=== PATIENT | male | born 1945 | race Caucasian/White ===

== ENCOUNTER 2025-06-29 15:05 | Observation (INO) ==
[2025-06-29 15:25] LABS: MEAN PLATELET VOLUME 9.0 fL (7.4-11.0); RED CELL DISTRIBUTION WIDTH 13.8 % (11.6-16.5)
[2025-06-29] MEDS: NS 1,000 ML IV 1,000 ML IV ONE (15:36)
[2025-06-29 15:38] LABS: COR NA(FOR HYPERGLY) 140 mmol/L (136-145); CREATININE 1.07 mg/dL (0.70-1.30); eGFR NON BLACK RACES > 60 (>60)
[2025-06-29 15:44] LABS: BAND NEUTROPHILS % 4 % (0-10); PLATELET MORPHOLOGY COMMENT NORMAL (NORMAL)
[2025-06-29] MEDS ORDERED: OMNIPAQUE 350 mg/mL 100 mL BTL 100 ML ONE (15:53)
--- NOTE | 2025-06-29 17:15 | DR.N/VMALE ---
HPI Time Seen Time Seen by Provider: 06/29/25 16:56 Primary Care Physician Primary Care Physician: carlos funez HPI Comment HPI Comment: According to pt he had umbilical hernia surgery and was discharged yesterday. Was doing better. However experienced nausea and vomiting with constipation .Pt took Metamucil helped but cont. to experience nausea. Had also noted dark stools , here to have himself checked Complaints Chief Complaint Doctors Comments: nausea and vomiting Chief Complaint:: Patient states he recently had hernia sx day was discharged yesterday he has been bloated and hasnt had a bowel movement in a couple days so he took some laxatives started having black diarrhea along with nausea and vomiting. Patient denies any abd pain at this time. COVID-19 Coronavirus risk:travel/contact w/high risk person: No Has patient experienced Coronavirus symptoms: No Reviewed Nurses Notes Reviewed: Yes Source History Provided: Patient Mode of Arrival Mode of Arrival: Ambulatory Timing Onset of Chief Complaint: 06/29/25 Context Onset: Spontaneous History of: Abdominal Operation Quality Quality: Bilious PMH PMH Past Medical History: Yes Past Medical History: Dyslipidemia Past Surgical History: Yes Surgical History: Ortho Surgery Past Surgical History Comment: hernia sx, bruce knee, neck Family History History of Family Medical Conditions: No Social History Does patient currently use any type of tobacco product: No Have you used tobacco products in the last 12 months: No Type of Tobacco Use: None Does any household member use tobacco: No Alcohol Use: None Do you use any recreational Drugs:: No Lives With: Family Lives Where: Home Travel Risk Coronavirus risk:travel/contact w/high risk person: No Has patient experienced Coronavirus symptoms: No Infectious screening In the last 2 months have you had wt loss of >10#?: NO Have you had fever, night sweats or hemotysis?: No Have you traveled outside the country in the last 6 months?: No Isolation: Standard ROS Review of Systems Eyes: No Symptoms Reported ENTM: No Symptoms Reported Respiratoy: No Symptoms Reported Cardiovascular: No Symptoms Reported Gastrointestinal/Abdominal: Constipation, Nausea and Vomiting Genitourinary: No Symptoms Reported Neurological: No Symptoms Reported Musculoskeletal: No Symptoms Reported Integumentary: No Symptoms Reported PE Vital Signs Vitals: Vital Signs Temperature 98.1 F Pulse Rate [Bilateral Radial] 97 Pulse Rate [Bilateral Radial] 105 Pulse Rate 112 Respiratory Rate 16 Blood Pressure [Left Arm] 137/84 Blood Pressure [Left Arm] 130/91 Blood Pressure 130/74 O2 Sat by Pulse Oximetry 95 O2 Sat by Pulse Oximetry 95 O2 Sat by Pulse Oximetry 92 General Limitations: No Limitations General Appearance: Alert and In No Apparent Distress Head Head Exam: Normal Inspection, Atraumatic and Normocephalic Eyes Eye exam: Normal Appearance, PERRL and EOMI ENT ENT Exam: Mucous Membranes Moist Neck Neck Exam: Normal Inspection, Full ROM and Trachea Midline Chest Chest Inspection: Normal Inspection and Symmetric Chest Wall Rise Respiratory Respiratory Exam: Normal Lung Sounds Bilat Respiratory Exam: Bilateral: Clear to Auscultation Cardiovascular Cardiovascular Exam: +S1 and +S2 Abdominal Exam Abdominal Exam: Soft, Distention, Hypoactive Bowel Sounds and Other (bruising from the surgery ,no guarding or rebound ) Back Back Exam: Normal Inspection Skin Skin Exam: Normal Color MDM Additional Information Obtained Additional Information Obtained From: Old Records Differential Diagnosis Differential Diagnosis: Considerations may Include:: Bowel Obstruction Differential Diagnosis Comment: abdominal abscess COURSE Treatment Treatment: labs ,ct abdomen /pelvis pelvis,IV fluids ,hemocult ROR Labs Reviewed Laboratory Results Reviewed?: Yes 06/29/25 15:19 06/29/25 15:19 Laboratory: WBC 16.4 X10^3/uL (3.6-10.0) H 06/29/25 15:19 RBC 5.90 X10^6/uL (4.7-6.0) 06/29/25 15:19 Hgb 17.7 g/dL (13.5-18.0) 06/29/25 15:19 Hct 52.1 % (42.0-54.0) 06/29/25 15:19 MCV 88.3 fL (80.0-100.0) 06/29/25 15:19 MCH 30.0 pg (27.0-34.0) 06/29/25 15:19 MCHC 34.0 g/dL (33.0-35.0) 06/29/25 15:19 RDW 13.8 % (11.6-16.5) 06/29/25 15:19 Plt Count 149 X10^3/uL (150.0-450.0) L 06/29/25 15:19 Plt Count Comment Adequate (ADEQUATE) 06/29/25 15:19 MPV 9.0 fL (7.4-11.0) 06/29/25 15:19 Neut % (Auto) 88.2 % (42.0-75.0) H 06/29/25 15:19 Lymph % (Auto) 5.2 % (21.0-51.0) L 06/29/25 15:19 [place] % (Auto) 4.8 % (0.0-13.0) 06/29/25 15:19 Eos % (Auto) 0.7 % (0.9-2.9) L 06/29/25 15:19 Baso % (Auto) 1.1 % (0.2-1.0) H 06/29/25 15:19 Neut # (Auto) 14.5 x10^3/uL (2.2-4.8) H 06/29/25 15:19 Lymph # (Auto) 0.9 X10^3/uL (1.3-2.9) L 06/29/25 15:19 [place] # (Auto) 0.8 x10^3/uL (0.3-0.8) 06/29/25 15:19 Eos # (Auto) 0.1 x10^3/uL (0.0-0.2) 06/29/25 15:19 Baso # (Auto) 0.2 X10^3/uL (0.0-0.1) H 06/29/25 15:19 Absolute Nucleated RBC 0.1 /100WBC 06/29/25 15:19 Total Counted 100 06/29/25 15:19 Neutrophils % (Manual) 89 % (39-76) H 06/29/25 15:19 Band Neutrophils % 4 % (0-10) 06/29/25 15:19 Lymphocytes % (Manual) 5 % (13-43) L 06/29/25 15:19 Monocytes % (Manual) 2 % (4-9) L 06/29/25 15:19 Plt Morphology Comment Normal (NORMAL) 06/29/25 15:19 RBC Morphology Normal (NORMAL) 06/29/25 15:19 Sodium 139 mmol/L (136-145) 06/29/25 15:19 Corrected Sodium 140 mmol/L (136-145) 06/29/25 15:19 Potassium 4.1 mmol/L (3.5-5.1) 06/29/25 15:19 Chloride 101 mmol/L (98-107) 06/29/25 15:19 Carbon Dioxide 32.0 mmol/L (21-32) 06/29/25 15:19 BUN 17 mg/dL (7-18) 06/29/25 15:19 Creatinine 1.07 mg/dL (0.70-1.30) 06/29/25 15:19 Est GFR (MDRD) Af Amer > 60 (>60) 06/29/25 15:19 Est GFR (MDRD) Non-Af > 60 (>60) 06/29/25 15:19 Glucose 140 mg/dL (65-99) H 06/29/25 15:19 Lactic Acid 1.1 mmol/L (0.4-2.0) 06/29/25 16:00 Calcium 8.7 mg/dL (8.5-10.1) 06/29/25 15:19 Corrected Calcium TNP 06/29/25 15:19 Total Bilirubin 0.80 mg/dL (0.2-1.0) 06/29/25 15:19 AST 30 Units/L (15-37) 06/29/25 15:19 ALT 21 Units/L (12-78) 06/29/25 15:19 Alkaline Phosphatase 89 Units/L (46-116) 06/29/25 15:19 Total Protein 8.2 g/dL (6.4-8.2) 06/29/25 15:19 Albumin 4.0 g/dL (3.4-5.0) 06/29/25 15:19 Globulin 4.2 g/dL (2.5-4.5) 06/29/25 15:19 Albumin/Globulin Ratio 1.0 Ratio (1.1-2.1) L 06/29/25 15:19 Amylase 45 Units/L (25-115) 06/29/25 15:19 Lipase 18 Units/L (16-77) 06/29/25 15:19 Stool Occult Blood Positive (NEGATIVE) A 06/29/25 15:43 Opioid Opioid Risk Tool Age (Alfredito box if 16-45): No History of Preadolescent Sexual Abuse: No Total: 0 Total Score Risk Category: Low Risk Copyright: Hunter BRISENO predicting aberrant behaviors Discharge Plan Diagnosis Discharge Problem: Nausea and vomiting in adult patient, Postoperative ileus, Leukocytosis Discharge Plan Patient Disposition: ADMITTED INPATIENT Condition: Stable Prescriptions: Continued simvastatin 40 mg tablet 40 mg PO QPM tamsulosin 0.4 mg capsule 0.4 mg PO DAILY Discontinued donepezil 5 mg tablet 5 mg PO QDAY meloxicam 15 mg tablet 15 mg PO QDAY oxycodone-acetaminophen 5-325 mg tablet 1 tab PO Q6H PRN pantoprazole 40 mg tablet,delayed release (DR/EC) 40 mg PO BID testosterone cypionate 200 mg/mL oil 200 mg IM MONTHLY cyclobenzaprine 5 mg tablet 5 mg PO QPM PRN isotretinoin 30 mg capsule 30 mg PO QDAY levocetirizine 5 mg tablet 5 mg PO QDAY Health Concerns: Post Hospitalization: new medications and changes needed to prevent readmission or further decline. Pt educated and given instructions on all concerns. Plan of Treatment: Continue with present treatment and follow up plan. Pt is to keep follow up appointment as instructed and take medications as ordered. Orders to Discharge Patient Discharge Orders: Transfer (Routine); Ordered 06/29/25 Ordered By: Jeovanny Cody Follow ups/Referrals Follow ups/Referrals: [facility],None [Primary Care Provider] - 3 days Instructions Stand Alone Forms: Find Help Web Site, Post Hospital Follow Up Care Print Language: VIET[place]ESE ADDITIONAL NOTES Additional Notes Additional Notes: spoke with Dr. Galvan. Discussed patient labs and ct scan. agreed to have patient admitted for post op ileus, leukocytosis
--- NOTE | 2025-06-29 18:19 | CT ---
EXAM: CT ABDOMEN AND PELVIS WITH INTRAVENOUS CONTRAST HISTORY: Previous hernia surgery x 2 days. Nausea and vomiting. Diarrhea. TECHNIQUE: Spiral axial CT images are obtained through the abdomen and pelvis without the administration of oral contrast and with the administration of intravenous contrast. Additional coronal and sagittal reformatted images are reconstructed. COMPARISON: None available. FINDINGS: ABDOMINAL AND PELVIC WALL: There is an approximately 7.5 cm CC by 4.7 cm transverse by by 3.8 cm AP complex air and fluid collection seen in the periumbilical anterior abdominal wall fascial, with extensive surrounding subcutaneous soft tissue edema/swelling/induration; DDx includes recent postsurgical change with hemorrhagic periumbilical fluid and/or superinfection with periumbilical phlegmon and developing multifocal abscess with surrounding subcutaneous soft tissue cellulitis in the appropriate clinical setting. Clinical correlation is advised. GASTROINTESTINAL TRACT: There is a mildly dilated fluid-filled stomach, and up to 3.7 cm dilated fluid-filled small bowel loops in the anterior abdomen and pelvis, and up to 9.2 cm dilated cecum and ascending colon, consistent with postoperative ileus. There is colonic diverticulosis, especially severe in the sigmoid region, without CT evidence for acute diverticulitis. No evidence for bowel herniation, bowel obstruction, or colitis. A normal-appearing appendix is seen. GENITOURINARY SYSTEM: The kidneys are unremarkable. There is no ureteral calculus or stigmata of obstructive uropathy. The urinary bladder is grossly unremarkable for a non-dedicated exam. There is prostamegaly (4.7 cm transverse by 4.2 cm AP by 6.6 cm CC) in keeping with BPH; concomitant occult neoplastic disease not excluded. Axial image 98; sagittal image 37. BILIARY SYSTEM: There is cholelithiasis, consistent with sequela of chronic cholecystitis. Dilated/elongated gallbladder; nonspecific finding which may represent sequela of NPO status but cannot rule out acute cystitis in the appropriate clinical setting. Consider follow-up evaluation with HIDA scan to rule out cystic duct obstruction and acute cholecystitis as clinically warranted. CT ABDOMEN: The liver, spleen, pancreas, adrenal glands, and inferior vena cava are within normal limits for a CT scan. There is no intra-abdominal or retroperitoneal lymphadenopathy, free fluid, or free air seen. No abdominal herniation is noted. CT PELVIS: There is small amount of free fluid is seen in the distal dependent pelvis in keeping with sequela bowel pathology and/or postsurgical change. No pelvic sidewall or inguinal lymphadenopathy is seen. No inguinal herniation is noted. No free air is seen. There is an approximately 3.5 cm AP by 2.2 cm transverse by 3.5 cm CC complex cystic fluid collection seen in the [place] (gluteal) cleft of the buttock, in keeping with cellulitis and pilonidal cyst. Axial image 99; sagittal image 36. BONES AND JOINTS: severe multilevel DDD is seen in the middle and distal thoracic spine. Severe DDD at L5/S1; mild DDD is seen elsewhere in the L-spine. The visualized bony structures are otherwise within normal limits. LUNG BASES: The lung bases are clear. There is cardiomegaly with four-chamber enlargement. There is severe coronary atherosclerosis (LAD and left circumflex coronary artery). Left IMPRESSION: 1. Approximately 7.5 cm CC by 4.7 cm transverse by 3.8 cm AP complex air and fluid collection seen in the periumbilical anterior abdominal wall fascial, with extensive surrounding subcutaneous soft tissue edema/swelling/induration; DDx includes recent postsurgical change with hemorrhagic periumbilical fluid and/or superinfection with periumbilical phlegmon and developing multifocal abscess with surrounding subcutaneous soft tissue cellulitis in the appropriate clinical setting. Clinical correlation is advised. 2. Mildly dilated fluid-filled stomach, and up to 3.7 cm dilated fluid-filled small bowel loops in the anterior abdomen and pelvis, and up to 9.2 cm dilated cecum and ascending colon, consistent with postoperative ileus. 3. Colonic diverticulosis, especially severe in the sigmoid region, without CT evidence for acute diverticulitis. 4. No evidence for bowel herniation, bowel obstruction, appendicitis or colitis. 5. Cholelithiasis, consistent with sequela of chronic cholecystitis. 6. Dilated/elongated gallbladder; nonspecific finding which may represent sequela of NPO status but cannot rule out acute cystitis in the appropriate clinical setting. Consider follow-up evaluation with HIDA scan to rule out cystic duct obstruction and acute cholecystitis as clinically warranted. 7. No evidence for pyelonephritis, renal stone disease or obstructive uropathy. 8. Prostamegaly (4.7 cm transverse by 4.2 cm AP by 6.6 cm CC) in keeping with BPH; concomitant occult neoplastic disease not excluded. Axial image 98; sagittal image 37. 9. Small amount of free fluid is seen in the distal dependent pelvis in keeping with sequela bowel pathology and/or postsurgical change. 10. Approximately 3.5 cm AP by 2.2 cm transverse by 3.5 cm CC complex cystic fluid collection seen in the (gluteal) cleft of the buttock, in keeping with cellulitis and pilonidal cyst. Axial image 99; sagittal image 36. THIS IS AN ELECTRONICALLY VERIFIED FINAL REPORT 06/29/2025 6:16 PM - Electronically signed by Geraldine Ceja MD
[2025-06-29] MEDS: ZOCOR TAB 40 MG PO SCH (20:55)
[2025-06-29] MEDS: NS 1,000 ML IV 1,000 ML IV SCH (20:57)
[2025-06-29 21:21] VITALS: BMI 26.1
[2025-06-29] MEDS: ZOFRAN INJ 4 MG VIAL IVP PRN (22:17)
[2025-06-30 05:30] LABS: MEAN PLATELET VOLUME 9.2 fL (7.4-11.0); RED CELL DISTRIBUTION WIDTH 13.8 % (11.6-16.5)
[2025-06-30 05:50] LABS: COR CA(FOR HYPOALB) 8.2 mg/dL (8.5-10.1); CREATININE 0.93 mg/dL (0.70-1.30); eGFR NON BLACK RACES > 60 (>60)
[2025-06-30] MEDS: MORPHINE SULFATE INJ 2 MG INJ IVP PRN (08:21)
[2025-06-30] MEDS: FLOMAX PO SCH (10:05)
--- NOTE | 2025-06-30 11:39 | DR.H&P ---
H&P History & Physical for Day of: H&P Date: 06/29/25 Chief Complaint Chief Complaint: abdominal distension, poor bowel movements History of Present Illness History of Present Illness: This is a 79-year-old male who presented on June 27 and he had an incarcerated umbilical hernia requiring operative intervention. He was discharged home the next day on June 28 and returned yesterday June 29 with complaints of abdominal pain and distention. CT scan films consistent with ileus. He has postoperative changes around the mesh but no obvious evidence of infection clinically. Coincidentally the CT scan of the abdomen pelvis shows a pilonidal cyst. There is no evidence of infection or abscess. Clinically there is no evidence of this either. Past Medical History Past Medical History: Dyslipidemia, GERD and Hypertension Past Surgical History Surgical History: Ortho Surgery and Other (Repair of incarcerated umbilical hernia on June) Social History Does patient currently use any type of tobacco product: No Have you used tobacco products in the last 12 months: No Type of Tobacco Use: None Does any household member use tobacco: No Alcohol Use: None Drug Use: None Medications Home Medications: Home Medications Medication Instructions Recorded Confirmed Type cyclobenzaprine 5 mg tablet 5 mg PO QPM PRN 06/29/25 0 06/29/25 History donepezil 5 mg tablet 5 mg PO QDAY 06/29/25 History isotretinoin 30 mg capsule 30 mg PO QDAY 06/29/2508/15 History levocetirizine 5 mg tablet 5 mg PO QDAY 06/29/2506/29 History meloxicam 15 mg tablet 15 mg PO QDAY 06/29/2506/29 History oxycodone-acetaminophen 5 mg-325 1 tab PO Q6H PRN 08/1506/29/25 History mg tablet pantoprazole 40 mg tablet,delayed 40 mg PO BID 5 06/29/25 History release simvastatin 40 mg tablet 40 mg PO QPM 06/29/25 History tamsulosin 0.4 mg capsule 0.4 mg PO DAILY 06/29/2508/15 History testosterone cypionate 200 mg/mL 200 mg IM MONTHLY 08/1506/29/25 History intramuscular oil Allergies Allergies Allergy/AdvReac Type Severity Reaction Status Date / Time No Known Allergies Allergy Verified 06/29/25 15:31 Labs 06/30/25 05:05 06/30/25 05:05 Labs: Laboratory WBC 8.5 X10^3/uL (3.6-10.0) 06/30/25 05:05 RBC 5.07 X10^6/uL (4.7-6.0) 06/30/25 05:05 Hgb 15.2 g/dL (13.5-18.0) D 06/30/25 05:05 Hct 44.6 % (42.0-54.0) 06/30/25 05:05 MCV 88.0 fL (80.0-100.0) 06/30/25 05:05 MCH 30.0 pg (27.0-34.0) 06/30/25 05:05 MCHC 34.1 g/dL (33.0-35.0) 06/30/25 05:05 RDW 13.8 % (11.6-16.5) 06/30/25 05:05 Plt Count 121 X10^3/uL (150.0-450.0) L 06/30/25 05:05 Plt Count Comment Adequate (ADEQUATE) 06/29/25 15:19 MPV 9.2 fL (7.4-11.0) 06/30/25 05:05 Neut % (Auto) 65.6 % (42.0-75.0) 06/30/25 05:05 Lymph % (Auto) 18.7 % (21.0-51.0) L 06/30/25 05:05 [place] % (Auto) 11.6 % (0.0-13.0) 06/30/25 05:05 Eos % (Auto) 3.8 % (0.9-2.9) H 06/30/25 05:05 Baso % (Auto) 0.3 % (0.2-1.0) 06/30/25 05:05 Neut # (Auto) 5.6 x10^3/uL (2.2-4.8) H 06/30/25 05:05 Lymph # (Auto) 1.6 X10^3/uL (1.3-2.9) 06/30/25 05:05 [place] # (Auto) 1.0 x10^3/uL (0.3-0.8) H 06/30/25 05:05 Eos # (Auto) 0.3 x10^3/uL (0.0-0.2) H 06/30/25 05:05 Baso # (Auto) 0.0 X10^3/uL (0.0-0.1) 06/30/25 05:05 Absolute Nucleated RBC 0.2 /100WBC 06/30/25 05:05 Total Counted 100 06/29/25 15:19 Neutrophils % (Manual) 89 % (39-76) H 06/29/25 15:19 Band Neutrophils % 4 % (0-10) 06/29/25 15:19 Lymphocytes % (Manual) 5 % (13-43) L 06/29/25 15:19 Monocytes % (Manual) 2 % (4-9) L 06/29/25 15:19 Plt Morphology Comment Normal (NORMAL) 06/29/25 15:19 RBC Morphology Normal (NORMAL) 06/29/25 15:19 Sodium 140 mmol/L (136-145) 06/30/25 05:05 Corrected Sodium TNP 06/30/25 05:05 Potassium 4.0 mmol/L (3.5-5.1) 06/30/25 05:05 Chloride 106 mmol/L (98-107) 06/30/25 05:05 Carbon Dioxide 32.6 mmol/L (21-32) H 06/30/25 05:05 BUN 16 mg/dL (7-18) 06/30/25 05:05 Creatinine 0.93 mg/dL (0.70-1.30) 06/30/25 05:05 Est GFR (MDRD) Af Amer > 60 (>60) 06/30/25 05:05 Est GFR (MDRD) Non-Af > 60 (>60) 06/30/25 05:05 Glucose 85 mg/dL (65-99) 06/30/25 05:05 Lactic Acid 1.1 mmol/L (0.4-2.0) 06/29/25 16:00 Calcium 7.4 mg/dL (8.5-10.1) L 06/30/25 05:05 Corrected Calcium 8.2 mg/dL (8.5-10.1) L 06/30/25 05:05 Total Bilirubin 0.60 mg/dL (0.2-1.0) 06/30/25 05:05 AST 28 Units/L (15-37) 06/30/25 05:05 ALT 24 Units/L (12-78) 06/30/25 05:05 Alkaline Phosphatase 69 Units/L (46-116) 06/30/25 05:05 Total Protein 6.2 g/dL (6.4-8.2) L 06/30/25 05:05 Albumin 3.0 g/dL (3.4-5.0) L 06/30/25 05:05 Globulin 3.2 g/dL (2.5-4.5) 06/30/25 05:05 Albumin/Globulin Ratio 0.9 Ratio (1.1-2.1) L 06/30/25 05:05 Amylase 45 Units/L (25-115) 06/29/25 15:19 Lipase 18 Units/L (16-77) 06/29/25 15:19 Stool Occult Blood Positive (NEGATIVE) A 06/29/25 15:43 Review of Systems Constitutional: See HPI ENT: No Symptoms Reported Respiratory: No Symptoms Reported Cardiovascular: No Symptoms Reported Gastrointestinal: See HPI Genitourinary: No Symptoms Reported Musculoskeletal: No Symptoms Reported Skin: No Symptoms Reported Neurological: No Symptoms Reported Physical Exam Vital Signs: Vital Signs Temperature 97.9 F Temperature 98.3 F Pulse Rate [Bilateral Radial] 87 Pulse Rate [Bilateral Radial] 84 Respiratory Rate 20 Respiratory Rate 20 Respiratory Rate 20 Respiratory Rate 20 Blood Pressure [Right Arm] 140/79 Blood Pressure [Right Arm] 123/75 O2 Sat by Pulse Oximetry 93 O2 Sat by Pulse Oximetry 94 Oriented: Normal, Time, Person and Place Eyes: Normal Ear: Normal Nose: Normal Throat: Normal Respiratory: Clear Throughout Cardiovascular: Normal : Normal Auscultation: Bowel Sounds: Decreased Palpation: Other (Distended abdomen. No significant tenderness) Tenderness: Normal Skin: Wound (Dressing left in place over the umbilical repair. No evidence of drainage.) Musculoskeletal: Normal Psychiatric: Normal Mood Description: Calm Affect: Normal Speech Pattern: Clear and Appropriate Assessment/Plan (1) Postoperative ileus: Status: Acute Plan: Patient will be admitted. Remain NPO. Hydrate and follow laboratory values and may need follow-up abdominal series as well Review H&P Reviewed: Yes Patient was examined?: Yes
[2025-06-30] MEDS: DULCOLAX SUPPOSITORY 10 MG RECTAL ONE (11:56)
--- NOTE | 2025-06-30 13:15 | NOTE.SOAP ---
Soap Note Note for Day of Date of Exam: 06/30/25 Subjective Data Subjective Data: Hospital day #1 , admitted for ileus following repair of incarcerated umbilical hernia Objective Data Temperature: 98.7 F Pulse Rate: 83 Respiratory Rate: 20 Blood Pressure: 149/87 O2 Sat by Pulse Oximetry: 94 Objective Data: Had small BM with suppository. Still moderately distended . WBC=8.5, BMPmis WNL Assessment Assessment: Post op ileus Plan Plan: sips of clear liquids , check AAS in AM.
[2025-06-30] MEDS: ARICEPT TAB 5 MG PO SCH (20:25)
[2025-06-30 22:51] LABS: BLOOD/HEMOGLOBIN,URINE NEGATIVE (NEGATIVE); LEUKOCYTE ESTERASE ,URINE NEGATIVE (NEGATIVE); NITRITES,URINE NEGATIVE (NEGATIVE)
[2025-06-30 22:58] LABS: APPEARANCE,URINE CLEAR (CLEAR)
[2025-06-30 23:01] LABS: SQUAMOUS EPITHELIAL CELL,UR NEGATIVE /HPF (NEGATIVE)
[2025-07-01 04:48] LABS: CREATININE 0.84 mg/dL (0.70-1.30); eGFR NON BLACK RACES > 60 (>60)
[2025-07-01] MEDS ORDERED: FLOMAX PO SCH (09:00)
[2025-07-01] MEDS: PROTONIX TAB 40 MG PO SCH (09:00)
[2025-07-01] MEDS: MILK OF MAGNESIA PO ONE (09:07)
[2025-07-01] MEDS ORDERED: PHARMACY CONSULT XX SCH (10:00)
[2025-07-01] MEDS: LOVENOX INJ 40 MG SYR SC SCH (10:49)
--- NOTE | 2025-07-01 11:50 | RAD ---
EXAM: ACUTE ABDOMEN SERI ES HISTORY: post op ileus; SX: ORTHO, HERNIA, ELOY, KNEE, CSPINE COMPARISON: CT dated 06/29/2025 TECHNIQUE: AP chest; AP abdomen, supine and upright FINDINGS: Unremarkable cardiac silhouette. No focal consolidation, pleural effusion, or pneumothorax. Persistent mildly prominent air-filled small and large bowel loops. No free peritoneal air. No abnormal calcifications seen. IMPRESSION: Persistent mildly prominent air-filled small and large bowel loops, suggestive of ileus. No free peritoneal air. THIS IS AN ELECTRONICALLY VERIFIED FINAL REPORT 07/01/2025 11:46 AM - Electronically signed by Blayne Redding MD
[2025-07-01] MEDS: FIBERCON or FIBER-LAX PO SCH (16:04)
--- NOTE | 2025-07-01 23:51 | NOTE.SOAP ---
Soap Note Note for Day of Date of Exam: 07/01/25 Subjective Data Subjective Data: Patient is status post repair of incarcerated medical hernia who is readmitted with ileus. Had small bowel movement with the Dulcolax suppository. Still distended. Objective Data Temperature: 98.2 F Pulse Rate: 83 Respiratory Rate: 21 Blood Pressure: 137/75 O2 Sat by Pulse Oximetry: 95 Objective Data: Mild ecchymosis around incision. No cellulitis. Abdomen distended and not tender. Consistent with ileus Assessment Assessment: Postoperative ileus. Plan Plan: Will begin diet and Metamucil. Encourage ambulation.
[2025-07-02 05:37] LABS: MEAN PLATELET VOLUME 8.6 fL (7.4-11.0); RED CELL DISTRIBUTION WIDTH 13.6 % (11.6-16.5)
[2025-07-02 05:49] LABS: COR CA(FOR HYPOALB) 8.6 mg/dL (8.5-10.1); CREATININE 0.82 mg/dL (0.70-1.30); eGFR NON BLACK RACES > 60 (>60)
[2025-07-02] MEDS ORDERED: CONSULT PHARMACY - POTASSIUM & MAGNESIUM XX SCH (08:00)
[2025-07-02] MEDS: K-DUR TAB 20 MEQ PO SCH (08:28)
[2025-07-02 08:36] VITALS: RESP 20
--- NOTE | 2025-07-02 12:03 | NOTE.SOAP ---
Soap Note Note for Day of Date of Exam: 07/02/25 Subjective Data Subjective Data: Patient readmitted with ileus after repair of incarcerated umbilical hernia. Having bowel movements. Tolerating diet. Abdominal distension still present but less. Objective Data Temperature: 98.1 F Pulse Rate: 77 Respiratory Rate: 20 Blood Pressure: 136/86 Objective Data: Abdomen nontender. Still distended but less distended, white blood cell count within normal limits, basic metabolic profile within normal limits Assessment Assessment: Postop ileus Plan Plan: Advance diet, if tolerated will discharge home later today, encourage ambulation
[2025-07-02 16:37] VITALS: BP 135/83; PULSE 84; TEMP 98.3; O2SAT 97
--- NOTE | 2025-07-02 17:42 | W.DIS.FURT ---
Summary of Discharge Discharge Summary of Date Date of Exam: 07/02/25 Admission Date Date of Admission: 06/29/25 Admission Diagnosis Patient Problems (Updated 06/29/25 @ 19:12 by Jeovanny Cody) Leukocytosis (Acute) D72.829 Postoperative ileus (Acute) K91.89, K56.7 Nausea and vomiting in adult patient (Acute) R11.2 Hospital Course: 79 yo male with recent repair of incarcerated umbilical hernia and was discharged home and returned with abdominal distention and had evidence of ileus . Treated with IVFs and laxatives . Has had liquid bowel movements and tolertating a regular diet . Already has prescription at home for pain medications and already has f/u at Dr. Galvan's [place] office. Vital Signs: Vital Signs (72 hours) 06/29/25 18:30 06/29/25 19:00 06/29/25 19:30 Temperature Pulse Rate Pulse Rate [Bilateral Radial] 101 H 98 H 100 H Respiratory Rate Blood Pressure Blood Pressure [Left Arm] 139/90 152/93 132/94 Blood Pressure [Right Arm] O2 Sat by Pulse Oximetry 96 97 97 Oxygen Delivery Method Nasal Cannula Nasal Cannula Nasal Cannula Oxygen Flow Rate FIO2% 06/29/25 19:30 06/29/25 19:31 06/29/25 20:00 Temperature 98.5 F Pulse Rate Pulse Rate [Bilateral Radial] 101 H Respiratory Rate 20 Blood Pressure Blood Pressure [Left Arm] Blood Pressure [Right Arm] 142/97 O2 Sat by Pulse Oximetry 96 Oxygen Delivery Method Nasal Cannula Nasal Cannula Nasal Cannula Oxygen Flow Rate 2 2 2 FIO2% 28 06/30/25 00:00 06/30/25 04:00 06/30/25 08:00 Temperature 98.2 F 98.3 F 97.9 F Pulse Rate Pulse Rate [Bilateral Radial] 96 H 84 87 Respiratory Rate 19 20 20 Blood Pressure Blood Pressure [Left Arm] Blood Pressure [Right Arm] 141/76 123/75 140/79 O2 Sat by Pulse Oximetry 95 94 L 93 L Oxygen Delivery Method Nasal Cannula Nasal Cannula Nasal Cannula Oxygen Flow Rate 2 2 2 FIO2% 06/30/25 08:21 06/30/25 08:36 06/30/25 08:51 Temperature Pulse Rate Pulse Rate [Bilateral Radial] Respiratory Rate 20 20 Blood Pressure Blood Pressure [Left Arm] Blood Pressure [Right Arm] O2 Sat by Pulse Oximetry Oxygen Delivery Method Nasal Cannula Oxygen Flow Rate 2 FIO2% 06/30/25 08:54 06/30/25 12:00 06/30/25 13:14 Temperature 98.7 F 98.7 F Pulse Rate 83 Pulse Rate [Bilateral Radial] 83 Respiratory Rate 20 20 Blood Pressure 149/87 Blood Pressure [Left Arm] Blood Pressure [Right Arm] 149/87 O2 Sat by Pulse Oximetry 94 L 94 L Oxygen Delivery Method Room Air Nasal Cannula Oxygen Flow Rate 2 2 FIO2% 28 06/30/25 16:00 06/30/25 19:00 06/30/25 20:00 Temperature 98.9 F 98.9 F Pulse Rate Pulse Rate [Bilateral Radial] 82 84 Respiratory Rate 21 18 Blood Pressure Blood Pressure [Left Arm] Blood Pressure [Right Arm] 134/85 148/87 O2 Sat by Pulse Oximetry 93 L 93 L Oxygen Delivery Method Nasal Cannula Nasal Cannula Nasal Cannula Oxygen Flow Rate 2 2 2 FIO2% 06/30/25 21:00 06/30/25 23:09 06/30/25 23:39 Temperature Pulse Rate Pulse Rate [Bilateral Radial] Respiratory Rate 18 18 Blood Pressure Blood Pressure [Left Arm] Blood Pressure [Right Arm] O2 Sat by Pulse Oximetry Oxygen Delivery Method Room Air Oxygen Flow Rate FIO2% 07/01/25 00:00 07/01/25 03:38 07/01/25 07:00 Temperature 98.3 F 98.4 F Pulse Rate Pulse Rate [Bilateral Radial] 105 H 78 Respiratory Rate 21 16 Blood Pressure Blood Pressure [Left Arm] Blood Pressure [Right Arm] 127/91 105/68 O2 Sat by Pulse Oximetry 95 94 L Oxygen Delivery Method Nasal Cannula Nasal Cannula Room Air Oxygen Flow Rate 2 2 FIO2% 07/01/25 08:00 07/01/25 08:20 07/01/25 12:00 Temperature 98.3 F 98.2 F Pulse Rate Pulse Rate [Bilateral Radial] 75 83 Respiratory Rate 19 21 Blood Pressure Blood Pressure [Left Arm] Blood Pressure [Right Arm] 117/69 141/77 O2 Sat by Pulse Oximetry 96 96 Oxygen Delivery Method Room Air Room Air Room Air Oxygen Flow Rate FIO2% 07/01/25 16:00 07/01/25 19:00 07/01/25 20:00 Temperature 98.1 F 98.0 F Pulse Rate Pulse Rate [Bilateral Radial] 81 82 Respiratory Rate 20 20 Blood Pressure Blood Pressure [Left Arm] Blood Pressure [Right Arm] 137/75 121/73 O2 Sat by Pulse Oximetry 97 93 L Oxygen Delivery Method Room Air Room Air Room Air Oxygen Flow Rate FIO2% 07/01/25 20:40 07/01/25 23:50 07/02/25 00:00 Temperature 98.2 F 98.9 F Pulse Rate 83 Pulse Rate [Bilateral Radial] 80 Respiratory Rate 21 19 Blood Pressure 137/75 Blood Pressure [Left Arm] Blood Pressure [Right Arm] 139/81 O2 Sat by Pulse Oximetry 95 94 L Oxygen Delivery Method Room Air Room Air Oxygen Flow Rate FIO2% 07/02/25 04:00 07/02/25 07:00 07/02/25 08:00 Temperature 98.5 F 98.0 F Pulse Rate Pulse Rate [Bilateral Radial] 75 92 H Respiratory Rate 19 20 Blood Pressure Blood Pressure [Left Arm] Blood Pressure [Right Arm] 156/87 146/87 O2 Sat by Pulse Oximetry 92 L 95 Oxygen Delivery Method Room Air Room Air Room Air Oxygen Flow Rate FIO2% 07/02/25 08:24 07/02/25 11:40 07/02/25 12:03 Temperature 98.1 F 98.1 F Pulse Rate 77 Pulse Rate [Bilateral Radial] 77 Respiratory Rate 20 20 Blood Pressure 136/86 Blood Pressure [Left Arm] Blood Pressure [Right Arm] 136/86 O2 Sat by Pulse Oximetry 96 Oxygen Delivery Method Room Air Room Air Oxygen Flow Rate FIO2% 07/02/25 16:00 Temperature 98.3 F Pulse Rate Pulse Rate [Bilateral Radial] 84 Respiratory Rate 20 Blood Pressure Blood Pressure [Left Arm] Blood Pressure [Right Arm] 135/83 O2 Sat by Pulse Oximetry 97 Oxygen Delivery Method Room Air Oxygen Flow Rate FIO2% Labs: Laboratory Last Values WBC 7.6 X10^3/uL (3.6-10.0) 07/02/25 05:27 RBC 4.79 X10^6/uL (4.7-6.0) 07/02/25 05:27 Hgb 14.3 g/dL (13.5-18.0) 07/02/25 05:27 Hct 42.2 % (42.0-54.0) 07/02/25 05:27 MCV 88.2 fL (80.0-100.0) 07/02/25 05:27 MCH 29.9 pg (27.0-34.0) 07/02/25 05:27 MCHC 33.9 g/dL (33.0-35.0) 07/02/25 05:27 RDW 13.6 % (11.6-16.5) 07/02/25 05:27 Plt Count 130 X10^3/uL (150.0-450.0) L 07/02/25 05:27 Plt Count Comment Adequate (ADEQUATE) 06/29/25 15:19 MPV 8.6 fL (7.4-11.0) 07/02/25 05:27 Neut % (Auto) 62.4 % (42.0-75.0) 07/02/25 05:27 Lymph % (Auto) 19.4 % (21.0-51.0) L 07/02/25 05:27 [place] % (Auto) 11.1 % (0.0-13.0) 07/02/25 05:27 Eos % (Auto) 6.8 % (0.9-2.9) H 07/02/25 05:27 Baso % (Auto) 0.3 % (0.2-1.0) 07/02/25 05:27 Neut # (Auto) 4.7 x10^3/uL (2.2-4.8) 07/02/25 05:27 Lymph # (Auto) 1.5 X10^3/uL (1.3-2.9) 07/02/25 05:27 [place] # (Auto) 0.8 x10^3/uL (0.3-0.8) 07/02/25 05:27 Eos # (Auto) 0.5 x10^3/uL (0.0-0.2) H 07/02/25 05:27 Baso # (Auto) 0.0 X10^3/uL (0.0-0.1) 07/02/25 05:27 Absolute Nucleated RBC 0.1 /100WBC 07/02/25 05:27 Total Counted 100 06/29/25 15:19 Neutrophils % (Manual) 89 % (39-76) H 06/29/25 15:19 Band Neutrophils % 4 % (0-10) 06/29/25 15:19 Lymphocytes % (Manual) 5 % (13-43) L 06/29/25 15:19 Monocytes % (Manual) 2 % (4-9) L 06/29/25 15:19 Plt Morphology Comment Normal (NORMAL) 06/29/25 15:19 RBC Morphology Normal (NORMAL) 06/29/25 15:19 Sodium 139 mmol/L (136-145) 07/02/25 05:27 Corrected Sodium TNP 07/02/25 05:27 Potassium 3.6 mmol/L (3.5-5.1) 07/02/25 05:27 Chloride 104 mmol/L (98-107) 07/02/25 05:27 Carbon Dioxide 31.6 mmol/L (21-32) 07/02/25 05:27 BUN 7 mg/dL (7-18) 07/02/25 05:27 Creatinine 0.82 mg/dL (0.70-1.30) 07/02/25 05:27 Est GFR (MDRD) Af Amer > 60 (>60) 07/02/25 05:27 Est GFR (MDRD) Non-Af > 60 (>60) 07/02/25 05:27 Glucose 84 mg/dL (65-99) 07/02/25 05:27 Lactic Acid 1.1 mmol/L (0.4-2.0) 06/29/25 16:00 Calcium 7.6 mg/dL (8.5-10.1) L 07/02/25 05:27 Corrected Calcium 8.6 mg/dL (8.5-10.1) 07/02/25 05:27 Magnesium 2.1 mg/dL (2.0-2.9) 07/02/25 05:27 Total Bilirubin 0.60 mg/dL (0.2-1.0) 07/02/25 05:27 AST 27 Units/L (15-37) 07/02/25 05:27 ALT 26 Units/L (12-78) 07/02/25 05:27 Alkaline Phosphatase 59 Units/L (46-116) 07/02/25 05:27 Total Protein 6.1 g/dL (6.4-8.2) L 07/02/25 05:27 Albumin 2.8 g/dL (3.4-5.0) L 07/02/25 05:27 Globulin 3.3 g/dL (2.5-4.5) 07/02/25 05:27 Albumin/Globulin Ratio 0.8 Ratio (1.1-2.1) L 07/02/25 05:27 Amylase 45 Units/L (25-115) 06/29/25 15:19 Lipase 18 Units/L (16-77) 06/29/25 15:19 Specimen Type Clean catch urine 06/30/25 22:37 Urine Color Yellow (YELLOW) 06/30/25 22:37 Urine Appearance Clear (CLEAR) 06/30/25 22:37 Urine pH 7.0 (5.0 - 8.0) 06/30/25 22:37 Ur Specific [place] 1.010 (1.000-1.030) 06/30/25 22:37 Urine Protein 1+ (NEGATIVE) 06/30/25 22: Urine Glucose (UA) Negative (NEGATIVE) 06/30/25 22: Urine Ketones 1+ (NEGATIVE) 06/30/25 22:37 Urine Blood Negative (NEGATIVE) 06/30/25 22:37 Urine Nitrite Negative (NEGATIVE) 06/30/25 22:37 Urine Bilirubin Negative (NEGATIVE) 06/30/25 22:37 Urine Urobilinogen Normal (NORMAL) 06/30/25 22:37 Ur Leukocyte Esterase Negative (NEGATIVE) 06/30/25 22:37 Urine RBC None seen /HPF (0-3) 06/30/25 22:37 Urine WBC None seen /HPF (0-5) 06/30/25 22:37 Ur Squamous Epith Cells Negative /HPF (NEGATIVE) 06/30/25 22:37 Urine Bacteria Negative /HPF (NEGATIVE) 06/30/25 22:37 Ur Culture Indicated? No/not indicated 06/30/25 22:37 Stool Occult Blood Positive (NEGATIVE) A 06/29/25 15:43 Reason For Visit: POST OPERATIVE ILEUS /LEUKOCYTOSI/NAUSEA/VOMITING Discharge Diagnosis All Active Problems (Updated 06/29/25 @ 19:12 by Jeovanny Cody) Leukocytosis (Acute) Postoperative ileus (Acute) Nausea and vomiting in adult patient (Acute) Plan of Treatment: Continue with present treatment and follow up plan. Pt is to keep follow up appointment as instructed and take medications as ordered. Discharge Medications Discharge Medications: No Known Allergies Allergy (Verified 06/29/25 15:31) CONTINUE taking the following medications cyclobenzaprine 5 mg tablet 5 mg PO QPM PRN 06/29/25 [History] donepezil 5 mg tablet 5 mg PO QDAY 06/29/25 [History] isotretinoin 30 mg capsule 30 mg PO QDAY 06/29/25 [History] levocetirizine 5 mg tablet 5 mg PO QDAY 06/29/25 [History] meloxicam 15 mg tablet 15 mg PO QDAY 06/29/25 [History] oxycodone-acetaminophen 5 mg-325 mg tablet 1 tab PO Q6H PRN 06/29/25 [History] pantoprazole 40 mg tablet,delayed release 40 mg PO BID 06/29/25 [History] simvastatin 40 mg tablet 40 mg PO QPM 06/29/25 [History] tamsulosin 0.4 mg capsule 0.4 mg PO DAILY 06/29/25 [History] testosterone cypionate 200 mg/mL intramuscular oil 200 mg IM MONTHLY 06/29/25 [History] PERCOCET 5G , 1 PO Q 6 HR PRN PAIN Discharge Disposition Assessment: [facility] Discharge Plan Discharge Plan Hospital Course: 79 yo male with recent repair of incarcerated umbilical hernia and was discharged home and returned with abdominal distention and had evidence of ileus . Treated with IVFs and laxatives . Has had liquid bowel movements and tolertating a regular diet . Already has prescription at home for pain medications and already has f/u at Dr. Galvan[facility] [place] office. Patient Disposition: 01 HOME, SELF-CARE Condition: Stable Health Concerns: Post Hospitalization: new medications and changes needed to prevent readmission or further decline. Pt educated and given instructions on all concerns. Care Plan Goals: Problem: Pain/Alteration in Comfort Goal: Improve/ Resolve Pain; Achieve Pain Tolerance Instructions: Take pain medications as prescribed. Contact your primary care provider if your pain is unrelieved or worsens. Follow up with primary care provider as directed. Plan of Treatment: Continue with present treatment and follow up plan. Pt is to keep follow up appointment as instructed and take medications as ordered. Assessment: [facility] Prescription drug monitoring program results: PDMP was not reviewed Prescriptions: Continued simvastatin 40 mg tablet 40 mg PO QPM tamsulosin 0.4 mg capsule 0.4 mg PO DAILY Discontinued donepezil 5 mg tablet 5 mg PO QDAY meloxicam 15 mg tablet 15 mg PO QDAY oxycodone-acetaminophen 5-325 mg tablet 1 tab PO Q6H PRN pantoprazole 40 mg tablet,delayed release (DR/EC) 40 mg PO BID testosterone cypionate 200 mg/mL oil 200 mg IM MONTHLY cyclobenzaprine 5 mg tablet 5 mg PO QPM PRN isotretinoin 30 mg capsule 30 mg PO QDAY levocetirizine 5 mg tablet 5 mg PO QDAY Orders to Discharge Patient Discharge Orders: Discharge (Routine); Ordered 07/02/25 Ordered By: Yan Galvan Follow ups/Referrals Follow ups/Referrals: Yan Galvan [STAFF PHYSICIAN, Unknown] - 07/10/25 11:45 am Instructions Instructions: Ileus Stand Alone Forms: Excuse From Work or School, Find Help Web Site, Post Hospital Follow Up Care Print Language: PANAMANIAN
== END 2025-07-02 17:50 | disposition home or self-care (01) ==
LOC: MED/SURG 15:05 → ER 15:05 → MED/SURG 19:52
PROVIDERS: ADMIT Surgery; ATTEND Surgery
DX: K57.30 Diverticulosis of large intestine without perforation or abscess without bleeding; D72.828 Other elevated white blood cell count; K91.89 Other postprocedural complications and disorders of digestive system; E78.5 Hyperlipidemia, unspecified; K56.7 Ileus, unspecified; I11.9 Hypertensive heart disease without heart failure; R26.81 Unsteadiness on feet; L05.91 Pilonidal cyst without abscess; K59.09 Other constipation; R73.09 Other abnormal glucose; M62.81 Muscle weakness (generalized); E83.51 Hypocalcemia; Z98.890 Other specified postprocedural states; K21.9 Gastro-esophageal reflux disease without esophagitis; R11.2 Nausea with vomiting, unspecified; N40.0 Benign prostatic hyperplasia without lower urinary tract symptoms; K92.1 Melena